=== PATIENT | female | born 1985 | race Caucasian/White ===

== ENCOUNTER 2016-11-04 21:23 | Emergency (ER) | payer SELFPAY ==
[2016-11-04] MEDS ORDERED: Ondansetron ODT 4 MG TAB ONE (21:38)
[2016-11-04] MEDS ORDERED: Ibuprofen 200 MG TAB ONE (21:38)
[2016-11-04] MEDS ORDERED: Ibuprofen 800 MG TAB ONE (21:41)
[2016-11-04 21:56] LABS: Blood, Urine Trace (Negative); Clarity Slightly Cloudy (Clear); Glucose, Urine (Dipstick) Negative (Negative); Leukocyte Trace (Negative); Nitrite Positive (Negative); Protein, Urine (Dipstick) 100 mg/dL (Neg-Trace)
[2016-11-04 22:01] LABS: Bilirubin Negative (Negative)
[2016-11-04 22:04] LABS: Bacteria/HPF 4+ HPF (None Seen); Other Casts/LPF 0-3 FINELY GRAN LPF (0-3 Hyaline); Squamous Epithelial 0-3 HPF (0-3)
[2016-11-04] MEDS ORDERED: cefTRIAXone\\ROCEPHIN 2 GM VIAL ONE (22:23)
[2016-11-04] MEDS ORDERED: Sodium Chloride 0.9% 100 ML ONE (22:23)
[2016-11-04] MEDS ORDERED: Fentanyl 100 MCG/2 ML VIAL ONE (22:23)
[2016-11-04 22:39] LABS: Band 7 % (5-11); Hemoglobin 7.8 g/dL (12.0-16.0); Hypochromia SLIGHT = 6-15 cells (100X) (0-5/hpf); Lymphocytes 6 % (21-51); MDiff Complete? YES; Mean Corpuscular HGB CONC 30.3 g/dL (32.0-36.0); Mean Corpuscular Hemoglobin 18.9 pg (27.0-31.0); Mean Corpuscular Volume 62.1 fl (81.0-99.0); Mean Platelet Volume 7.8 fL (7.4-10.4); Microcytosis SLIGHT = 6-15 cells (100X) (0-5/hpf); Monocytes 7 % (0-10); Neutrophil 80 % (42-75); Ovalocytes SLIGHT = 2-5 cells (100X) (0-1/hpf); PLT Morphology Comment Appears Adequate; Platelet Count 234 thou/uL (130-400); Red Blood Cell (RBC) Count 4.16 mill/uL (4.20-5.40)
[2016-11-04 22:42] LABS: ALT (SGPT) 13 U/L (8-55); AST (SGOT) 22 U/L (5-34); Albumin 3.6 g/dL (3.5-5.0); Alkaline Phosphatase 49 U/L (40-150); Anion Gap 15 mmol/L (10-20); BUN (Urea Nitrogen) 7 mg/dL (7.0-18.7); Bilirubin, Total 0.6 mg/dL (0.2-1.2); Calc. Creatinine Clearance 0 mL/min (70-130); Carbon Dioxide 20 mmol/L (22-29); Chloride 104 mmol/L (98-107); Estimated GFR-MDRD Greater than 90; Globulin 3.8 g/dL (2.4-3.5); Glucose 156 mg/dL (70-105); Potassium 3.5 mmol/L (3.5-5.1); Protein, Total 7.4 g/dL (6.0-8.3); Sodium 135 mmol/L (136-145)
[2016-11-04 22:45] LABS: Anisocytosis SLIGHT = 6-15 cells (100X) (0-5/hpf)
== END 2016-11-05 00:01 | disposition short-term general hospital (02) ==
LOC: BURERS 21:23
DX: N12 Tubulo-interstitial nephritis, not specified as acute or chronic (principal); D64.9 Anemia, unspecified; F17.210 Nicotine dependence, cigarettes, uncomplicated
CPT/HCPCS: 36415; 80053; 81003; 81015; 82274; 83605; 85025; 87040; 87077; 87086; 87186; 96365; 96375; J0696; J3010; J7050; Q0162